=== PATIENT | female | born 1945 | race Caucasian/White ===

== ENCOUNTER 2017-02-17 09:27 | Outpatient (CLI) | payer MEDICARE, BC ==
--- NOTE | 2017-02-17 11:02 | RAD ---
TWO VIEWS LUMBAR SPINE INCLUDING FLEXION AND EXTENSION VIEWS LUMBAR SPINE: HISTORY: Spondylolysis, M13.07. FINDINGS: Two lateral views lumbar spine including flexion and extension views obtained. There is grade III anterolisthesis of L5 on S1. This does not significantly change on flexion or ext ension views. The rest of the lumbar spine is unremarkable. There is a compression fracture at the T12 level. IMPRESSION: 1. T12 compression fracture. 2. Grade III anterolisthesis of L5 on S1 not significantly changed between flexion or extension view s. POS: [facility]
--- NOTE | 2017-02-17 11:26 | MRI ---
MRI LUMBAR SPINE NONCONTRAST ENHANCED: Date: 02-17-17 Comparison: 05-12-15 FINDINGS: Multiplanar, multisequence noncontrast enhanced MRI images lumbar spine demonstrate interval developm ent of an approximately 25% compression fracture involving the superior aspect of the T12 vertebra. T12-L1, L1-2: Unremarkable. L2-3: Disc desiccation is seen. There is a broad based central and right paracentral disc protrusion which has developed narrowing the right L2-3 lateral recess. The protrusion mildly compresses the ant erior aspect of the L2-3 thecal sac as well. L3-4: There is previously noted right L3-4 foraminal and far lateral soft tissue material, no longer present. It may have been surgically removed. The L3-4 disc demonstrates no significant evidence of c entral stenosis or neural foraminal narrowing. L4-5: Disc desiccation is seen. There is a broad based disc bulge with bilateral facet hypertrophy. N o significant degree of central or neural foraminal narrowing is seen. L5-S1: There is grade II anterolisthesis of L5 on S1. On MRI it is less pronounced than what is seen on plain film radiographs. Spondylolysis seen at L5 pars region bilaterally. The central canal is pat ent. Moderate bilateral neural foraminal narrowing is seen due to the anterolisthesis. IMPRESSION: 1. Interval development of T12 height loss and partial compression fracture. 2. Surgical removal or nonvisualization of the right L3-4 neural foraminal and far lateral recess sof t tissue density. POS: [facility]
== END 2017-02-17 09:28 | disposition home or self-care (01) ==
LOC: SCSMRI 09:27
PROVIDERS: ATTEND Specialist
DX: M43.07 Spondylolysis, lumbosacral region (principal); M48.54XA Collapsed vertebra, not elsewhere classified, thoracic region, initial encounter for fracture
CPT/HCPCS: 72100; 72148